=== PATIENT | female | born 1990 | race Caucasian/White ===

== ENCOUNTER 2021-01-20 13:46 | Outpatient (CLI) | payer OTHER, SELFPAY ==
--- NOTE | ~2021-01-20 | US_ITS ---
EXAMINATION: US pelvic complete EXAM DATE: 01/20/2021 14:32 INDICATION: Pelvic and perineal pain. TECHNIQUE: Pelvic transabdominal sonogram was performed. There are multiple grayscale and Doppler im ages available for interpretation. There is no prior study for comparison. FINDINGS: Uterus measures 6.6 x 3.2 x 4.2 cm, and is morphologically normal. Endometrial stripe teo sures 7 mm, within normal limits. There is no free pelvic fluid. Right adnexa: The ovary is not identified. There is no adnexal mass. Left adnexa: The ovary is not identified. There is no adnexal mass. IMPRESSION: Unremarkable uterus. Ovaries not identified. Reviewed, dictated and finalized at location B.
== END 2021-01-20 13:47 ==
PROVIDERS: Visit Provider Nurse Practitioner
DX: R10.2 Pelvic and perineal pain (principal)
CPT/HCPCS: 76856

== ENCOUNTER 2021-08-25 08:55 | Outpatient (CLI) | payer OTHER, SELFPAY ==
--- NOTE | ~2021-08-25 | US_ITS ---
EXAMINATION: US breast LT limited HISTORY: Pain in the lower inner quadrant of the left breast TECHNIQUE: Limited left breast ultrasound is performed. COMPARISON: 11/19/2015 FINDINGS: There is no evidence of focal abnormal cystic or solid mass in the vicinity of the patient' s reported left breast pain. IMPRESSION: No specific sonographic correlate is identified for the patient's reported left breast pain. Further evaluation at this time should be based on clinical assessment. Continued follow-up physical examinat ion is recommended. BI-RADS Category 1: Negative Reviewed, dictated and finalized at location A. GRADER IMPRESSION: No specific sonographic correlate is identified for the patient's reported left breast pain. Further evaluation at this time should be based on clinical asses sment. Continued follow-up physical examination is recommended. BI-RADS Category 1: Negative
== END 2021-08-25 08:56 ==
PROVIDERS: Visit Provider Nurse Practitioner
DX: N64.4 Mastodynia (principal); Z80.3 Family history of malignant neoplasm of breast
CPT/HCPCS: 76642

== ENCOUNTER → 2023-01-31 09:04 | Outpatient (CLI) | payer OTHER, SELFPAY ==
--- NOTE | ~2023-01-31 | MMUS_ITS ---
EXAMINATION: MM diagnostic brendon BI w anabell, US breast BI complete HISTORY: Bilateral nipple pain TECHNIQUE: Additional 3-D tomosynthesis images of the breasts were performed and synthetic 2-D images were generated. CAD analysis was submitted and interpreted. High resolution bilateral complete breas t ultrasound was performed. COMPARISON: None BREAST PARENCHYMAL COMPOSITION: Breast composed of scattered areas of fibroglandular density FINDINGS: MAMMOGRAPHIC FINDINGS: There are no suspicious masses, calcifications or architectural distortion in either breast to sugges t malignancy. ULTRASOUND: Complete bilateral US of all 4 quadrants of the breasts and retroareolar region was reviewed. Right breast: At 12:00, 3 cm from the nipple, there is an oval 8mm hypoechoic mass with enhanced thro ugh transmission, no internal vascularity, likely a complicated cyst. At 12:00, 2 cm from the nipple, there is a cluster of microcysts measuring 4 mm. At 12:00 near the nipple there is a 4 mm cyst. At 2 :00, 4 cm from the nipple, there is a 5 mm cyst. Left breast: Normal heterogeneous echotexture without focal solid or cystic mass. IMPRESSION: 1. Probable benign right breast mass at 12:00, 3 cm from the nipple. 2. Recommend 6 month follow-up Limited right breast ultrasound BI-RADS category 3, probably benign findings. Reviewed, dictated and finalized at location A. IMPRESSION: 1. Probable benign right breast mass at 12:00, 3 cm from the nipple. 2. Recommend 6 month follow-up Limited right breast ultrasound BI-RADS category 3, probably benign findings.
== END ==
PROVIDERS: PCP Obstetrics & Gynecology Gynecology; Visit Provider Obstetrics & Gynecology Gynecology
DX: N64.4 Mastodynia (principal); R92.8 Other abnormal and inconclusive findings on diagnostic imaging of breast
CPT/HCPCS: 76641; 77062; 77066; G0279

== ENCOUNTER 2023-06-14 10:10 | Outpatient (CLI) | payer OTHER, SELFPAY ==
--- NOTE | ~2023-06-14 | US_ITS ---
US breast RT limited DATE: 06/14/2023 10:26 INDICATION: Palpable mass at 12:00 3 cm from nipple TECHNIQUE: Real-time and color flow imaging targeted at 12:00 3 cm from nipple COMPARISON: 01/31/2023 diagnostic bilateral mammogram and bilateral complete breast ultrasound examina tion FINDINGS: There is a stable circumscribed sonolucency measuring approximately 7.3 mm maximal dimensio n compared to 7.5 mm on 01/31/2023. There is through transmission and posterior enhancement. There is a similar smaller approximately 2.5 x 3 mm cyst nearby. IMPRESSION: BI-RADS Category 2: Benign Recommendation: Routine annual mammographic screening beginning at age 40 unless there are earlier sy mptoms or physical findings Reviewed, dictated and finalized at [facility]. Reviewed, dictated and finalized at location A. SSIONS ADVISOR IMPRESSION: BI-RADS Category 2: Benign Recommendation: Routine annual mammographic screening beginning at age 40 unles s there are earlier symptoms or physical findings
== END 2023-06-14 10:11 ==
LOC: MICIMG 10:11
PROVIDERS: PCP Advanced Practice Midwife; Visit Provider Advanced Practice Midwife
DX: N63.10 Unspecified lump in the right breast, unspecified quadrant (principal)
CPT/HCPCS: 76642